=== PATIENT | male | born 1940 | race Caucasian/White ===

== ENCOUNTER 2017-11-01 08:43 | Outpatient (CLI) | payer MEDICARE, OTHER ==
[2017-11-01 09:33] LABS: #Eosinphils 0.2 thou/uL (0.0-0.7); #Lymphocytes 1.5 thou/uL (1.20-3.40); #Monocytes 0.6 thou/uL (0.11-0.59); #Neutrophils 2.6 thou/uL (1.40-6.50); %Basophils 0.5 % (0.0-1.0); %Eosinophils 3.5 % (0.0-10.0); %Lymphocytes 30.9 % (21.0-51.0); %Neutrophils 52.2 % (42.0-75.0); Hemoglobin 14.8 g/dL (14.0-18.0); Mean Corpuscular HGB CONC 33.8 g/dL (32.0-36.0); Mean Corpuscular Volume 94.5 fl (80.0-94.0); Platelet Count 145 thou/uL (130-400); RBC Distribution Width 11.9 % (11.5-14.5); Red Blood Cell (RBC) Count 4.63 mill/uL (4.70-6.10); White Blood Cell (WBC) Count 4.9 thou/uL (4.8-10.8)
[2017-11-01 09:41] LABS: Anion Gap 9 mmol/L (10-20); BUN (Urea Nitrogen) 15 mg/dL (8.4-25.7); Calc. Creatinine Clearance 0 mL/min (70-130); Calcium 9.9 mg/dL (7.8-10.44); Carbon Dioxide 29 mmol/L (23-31); Chloride 105 mmol/L (98-107); Estimated GFR-MDRD 85; Glucose 116 mg/dL (83-110); Potassium 4.2 mmol/L (3.5-5.1); Sodium 139 mmol/L (136-145)
== END 2017-11-01 08:44 | disposition home or self-care (01) ==
LOC: LABBT 08:43
PROVIDERS: ATTEND Surgery
DX: Z01.812 Encounter for preprocedural laboratory examination (principal); K40.90 Unilateral inguinal hernia, without obstruction or gangrene, not specified as recurrent
CPT/HCPCS: 80048; 85025

== ENCOUNTER 2017-11-04 05:39 | Day surgery (SDC) | payer MEDICARE, OTHER ==
[2017-11-01 08:55] VITALS: BMI 27.8
[2017-11-04] MEDS ORDERED: CEFAZOLIN/Water 2 GM/20 ML SYRINGE ONE (06:43)
[2017-11-04] MEDS ORDERED: Bupivacaine/Epinephrine 0.25% 30 ML VIAL ONE (06:49)
[2017-11-04] MEDS ORDERED: Fentanyl 100 MCG/2 ML VIAL ONE (06:53)
[2017-11-04] MEDS ORDERED: Lidocaine 1% PF 5 ML VIAL ONE (10:38)
[2017-11-04] MEDS ORDERED: Glycopyrrolate 0.2 MG/ML 5 ML SYRINGE ONE (10:38)
[2017-11-04] MEDS ORDERED: PROPOFOL 200 MG/20 ML VIAL ONE (10:38)
[2017-11-04] MEDS ORDERED: ePHEDrine/0.9% NaCl/PF SYRINGE 50 mg/10 ml ONE (10:38)
[2017-11-04] MEDS ORDERED: Dexamethasone 20 MG/5 ML VIAL ONE (10:38)
[2017-11-04] MEDS ORDERED: Ondansetron HCl/PF 4 MG/2 ML Vial ONE (10:38)
--- NOTE | 2017-11-05 13:36 | OP ---
DATE OF PROCEDURE: 11/04/2017 PREOPERATIVE DIAGNOSIS: Right inguinal hernia. POSTOPERATIVE DIAGNOSIS: Bilateral inguinal hernia. PROCEDURE: Laparoscopic da Jabari bilateral inguinal hernia repair with mesh, 3DMax large. SURGEON: Jagdeep Carbajal M.D. ANESTHESIA: General. ESTIMATED BLOOD LOSS: Minimal. COMPLICATIONS: None. SPECIMEN: None. FINDINGS: Bilateral inguinal hernia. TECHNIQUE: The patient was taken operating room and placed supine on the table. After general anest hetic was obtained, a Horan was placed. The abdomen was shaved, and draped in a sterile fashion. Cu rved incision made above the umbilicus. Cautery was used to dissect down to and score the fascia. A bdominal cavity entered bluntly using a Abeba clamp. An 11-mm applied medical balloon trocar was reny telma. Balloon inflated and pulled back up. High flow pneumoperitoneum was obtained. Left and right abdominal 8 mm robot assist ports were placed under direct visualization. The peritoneum was taken d own in the bilateral groin and the preperitoneal space is entered. Dissection is performed to pubic tubercle medially and to anterior superior iliac crest laterally, the iliopectineal line fully expose d. The bilateral direct hernias are dissected out of the direct defect high up onto the peritoneum. Cord structures are skeletonized and small bilateral cord lipomas are dissected high up onto the per itoneum. Bilateral 3DMax large mesh brought into the sterile field, placed into the abdominal cavity . The end-labeled medial aspect of the mesh is placed over pubic tubercle bilaterally. The meshes l aid out to fully cover the direct, indirect and femoral areas. A 2-0 Vicryl was used to sew the mesh to pubic tubercle medially and to the posterior fascia laterally. No sutures were placed in the tri angle of pain. The peritoneum was bilateral reapproximated using running 3-0 Stratafix suture. All port sites were infiltrated using local anesthetic. All ports were removed under camera visualizatio n. Pneumoperitoneum was let down. PDS was used to close the fascial defect below the umbilicus. Al l incisions were irrigated and closed using 4-0 Monocryl. The patient was en route to recovery in st able condition. All instrument counts, needle counts, and lap counts were correct.
== END 2017-11-04 10:20 | disposition home or self-care (01) ==
LOC: SDC 05:39
PROVIDERS: ATTEND Surgery
PROC: 0YUA4JZ Supplement Bilateral Inguinal Region with Synthetic Substitute, Percutaneous Endoscopic Approach (ICD-10-PCS; principal; 2017-11-04)
DX: K40.20 Bilateral inguinal hernia, without obstruction or gangrene, not specified as recurrent (principal)
CPT/HCPCS: 49650; C1781; J1100; J2001; J2405; J2704; J3010

== ENCOUNTER 2020-12-13 08:44 | Outpatient (CLI) | payer MEDICARE, OTHER ==
[2020-12-13] MEDS ORDERED: Magnevist 469MG/ML 20 ML VIAL ONE (09:39)
== END 2020-12-13 08:45 | disposition home or self-care (01) ==
LOC: TBSIIMAG 08:44
PROVIDERS: ATTEND Radiology Radiation Oncology
DX: C61 Malignant neoplasm of prostate (principal)
CPT/HCPCS: 72197; 82565; A9579

== ENCOUNTER 2023-08-22 08:10 | Emergency (ER) | payer MEDICARE ==
[2023-08-22 08:41] LABS: #Monocytes 0.7 thou/uL (0.11-0.59); #Neutrophils 5.1 thou/uL (1.40-6.50); %Basophils 0.4 % (0.0-1.0); %Eosinophils 0.4 % (0.0-10.0); %Monocytes 10.5 % (0.0-10.0); %Neutrophils 76.6 % (42.0-75.0); Hematocrit 42.1 % (42.0-52.0); Hemoglobin 14.3 g/dL (14.0-18.0); Mean Corpuscular Volume 94.2 fl (78.0-98.0); Mean Platelet Volume 9.6 fL (7.4-10.4); Platelet Count 129 10x3/uL (130-400); RBC Distribution Width 13.2 % (11.5-14.5); Red Blood Cell (RBC) Count 4.47 mill/uL (4.70-6.10); White Blood Cell (WBC) Count 6.7 10x3/uL (4.8-10.8)
[2023-08-22 09:00] LABS: ALT (SGPT) 19 U/L (8-55); AST (SGOT) 23 U/L (5-34); Albumin 4.2 g/dL (3.4-4.8); Alkaline Phosphatase 54 U/L (40-110); Anion Gap 14 mmol/L (10-20); BUN (Urea Nitrogen) 18 mg/dL (8.4-25.7); Bilirubin, Total 0.8 mg/dL (0.2-1.2); Calc. Creatinine Clearance 0 mL/min (70-130); Calcium 9.3 mg/dL (7.8-10.44); Carbon Dioxide 22 mmol/L (23-31); Chloride 106 mmol/L (98-107); Estimated GFR 65; Globulin 3.1 g/dL (2.4-3.5); Glucose 124 mg/dL (83-110); Potassium 4.4 mmol/L (3.5-5.1); Protein, Total 7.3 g/dL (5.8-8.1); Sodium 138 mmol/L (136-145)
[2023-08-22 09:02] LABS: Troponin I Less than 0.010 ng/mL (< 0.028)
[2023-08-22 09:20] LABS: Influenza A by NAA Not Detected (NotDetected); Influenza B by NAA Not Detected (NotDetected); SARS-CoV-2 NAA Rapid Test Not Detected (NotDetected)
[2023-08-22] MEDS ORDERED: Acetaminophen 500 MG TAB ONE (11:10)
== END 2023-08-22 12:06 | disposition home or self-care (01) ==
LOC: ERS 08:10
DX: J18.9 Pneumonia, unspecified organism (principal); E78.00 Pure hypercholesterolemia, unspecified; Z79.899 Other long term (current) drug therapy
CPT/HCPCS: 0240U; 71045; 71275; 80053; 83605; 83880; 84484; 85025; 87040; 93005; 36415